=== PATIENT | male | born 1995 | race Caucasian/White ===

== ENCOUNTER 2019-06-15 09:27 | Emergency (ER) | payer OTHER ==
[~2019-06-15] VITALS: Wt 67.0 kg
[~2019-06-15 09:27] MED LIST: AMOX500C2 PO
[2019-06-15 09:29] VITALS: BP 121/64; PULSE 99; RESP 18
== END 2019-06-15 10:12 | disposition home or self-care (01) ==
LOC: FTE 09:27
DX: J03.90 Acute tonsillitis, unspecified (principal)
CPT/HCPCS: 99283